=== PATIENT | male | born 1955 | race African-American/Black ===

== ENCOUNTER 2016-06-20 12:40 | Inpatient (IN) | payer OTHER ==
--- NOTE | ~2016-06-20 | CO ---
Unit #: [id number] #: [id number] Patient: JACLYN SPICER [id number] [address] [place], [place] [address] [id number] I MR#: [id number] NAME: JACLYN SPICER ROOM: [facility] Age: 61 Sex: M Admission Date: 06/20/2016 : 1955 Attending Physician: Tae Meza M.D. Primary Care Physician: Jesus Hooks M.D. CONSULTATION REPORT We were asked to see him by Dr. Meza. REASON FOR CONSULTATION Right middle lobe collapse. HISTORY OF PRESENT ILLNESS Mr. Spicer is a 61-year-old male, who actually was admitted for severe shortness of air and dyspnea. He was found to have a critical hemoglobin of 3.9 and transfused. He has a bit of a cough. No hemoptysis. Interestingly, he has been aware of an enlarged right thyroid for some time now, but was told that it was not a major issue. I cannot tell whether he was ever seen by an ENT physician. He did smoke, but he quit 20 years ago. PAST MEDICAL HISTORY Significant for diabetes mellitus; hypertension; neuropathy, status post right foot amputation. MEDICATIONS On admission had included amlodipine 5 mg p.o. daily, quinapril 20 mg p.o. daily, Tylenol with codeine q.6 hours p.r.n., Neurontin 300 mg p.o. b.i.d. ALLERGIES No known drug allergies. SOCIAL HISTORY He did smoke, but quit 20 years ago. FAMILY HISTORY Negative for lung disease. SYSTEMS REVIEW He has had a little bit of nausea. No vomiting. Appetite is good. Occasional leg swelling. He says he thinks he snores and is unaware of anybody telling him that he had any apnea. All other systems are negative except as mentioned. PHYSICAL EXAMINATION GENERAL: He presents as an old male, in no acute distress. VITAL SIGNS: Temperature was 99, pulse 70, respirations 20, blood pressure 133/67, saturation 98%. NECK: Thick. He has some asymmetric tissue towards the right consistent with this thyroid. He has no stridor. LUNGS: Evaluation of his lungs revels his breathing is not labored. Unit #: [id number] #: [id number] Patient: JACLYN SPICER Lungs are actually clear bilaterally to auscultation. HEART: Regular. ABDOMEN: Soft. Bowel sounds are present. EXTREMITIES: With 1+ edema. NEUROLOGIC: He is awake and alert. DIAGNOSTIC STUDIES IMAGING STUDIES: CT scan was reviewed by me. He has a significant soft tissue density in his neck, that is causing deviation of his trachea to the left. This is likely to be his thyroid gland. He has right middle lobe complete atelectasis. I really could not see a definite endobronchial lesion. I thought they might even have a little bit of a density that is lateral to the distal trachea that was not really mentioned by Radiology. This was done as a PE protocol and there was no pulmonary embolism. There was noted to be some lesions in the liver. These are hypodense. He does have gallstones. LABORATORY RESULTS: White blood cell count on admission 13.3, H and H were 3.9 and 14 and now 7.9 and 26, 456,000 platelets. MCV low at 61. Serum chemistry significant for BUN of 16, creatinine 1.3. Glucose is 199. Albumin 2.6, protein 6.7. PT is 11.8, PTT 27.9. He had a D-dimer of 2089. IMPRESSION 1. Complete atelectasis of right middle lobe, etiology uncertain. 2. Enlarged right thyroid with pressure on the trachea causing leftward deviation, but he has no stridor and his tracheal opening looks adequate. 3. Severe anemia. 4. Presumed hepatic metastatic disease primary uncertain. PLAN I think he needs bronchoscopy at some point. I see that a colonoscopy is planned. We could coordinate with surgery to do bronchoscopy after colonoscopy if possible. However, this would depend on when surgery wanted to do the colonoscopy and I would give deference to them. If we can coordinate, then we would need to set up the bronchoscopy in the next few days. Thank you very much for allowing me to participate in the care of this patient. Dictated by... Vicente Contreras M.D. LI/gregory TD: 06/22/2016 02:04 JOB #: [id number] Unit #: [id number] #: [id number] Patient: JACLYN SPICER CONSULTATION REPORT Page 1 of 1 X Vicente Contreras MD X CONSULTATION REPORT
--- NOTE | ~2016-06-20 | HP ---
Unit #: [id number] #: [id number] Patient: JACLYN SPICER [id number] [address] [place], [place] [address] [id number] I MR#: [id number] NAME: JACLYN SPICER [facility] Age: 61 Sex: M Admission Date: 06/20/2016 : 1955 Attending Physician: Tae Meza M.D. Primary Care Physician: Jesus Hooks M.D. HISTORY AND PHYSICAL HISTORY OF PRESENT ILLNESS The patient is a 61-year-old black male with history of hypertension, type 2 diabetes mellitus with peripheral neuropathy, obesity, personal right foot amputation, who presented himself to the emergency room with shortness of air and a nonproductive cough for the last month. It has been slowly worsening. In the emergency room, he had an essentially negative evaluation except for profound anemia and what appears to be multiple liver mets and is admitted for same. The patient is unsure of his last colonoscopy. I cannot find one in the chart. He has been transfused four units overnight and his hemoglobin is still only 6.5. I ordered stool for occult blood and they called me back and said one was positive, although I ordered three, but there is no result anywhere in the chart documenting the heme positive stool. In any case, he has already been seen by Surgery, set up for a CT scan of the abdomen and pelvis with oral and IV contrast. He is to start his GoLYTELY prep. The patient has had some right upper quadrant discomfort off and on. He is noted to have gallstones from previous x-rays. He also has had a profound weight loss of some 60 pounds over the last year but states that he started exercising about the same period of time three days weekly. PAST MEDICAL HISTORY Again, he has history of hypertension, type 2 diabetes mellitus, peripheral neuropathy, partial left foot amputation for diabetic ulcer. SOCIAL HISTORY He is a nonsmoker, nondrinker. No street drug use. FAMILY HISTORY Negative for any malignancies, anemia or GI disease. ALLERGIES He has no known drug allergies. MEDICATIONS PRIOR TO ADMISSION 1. Amlodipine 5 mg daily. 2. Quinipril 20 mg daily. 3. Tylenol 3 one q.6 hours p.r.n. for pain. 4. Neurontin 300 mg b.i.d. PHYSICAL EXAMINATION GENERAL APPEARANCE: He is awake, alert, oriented x3, in no acute distress. VITAL SIGNS: His T-max overnight was 100.0. Pulse 81. Respirations 26. Blood pressure 134/64. Room air O2 sat 99%. HEENT: Unremarkable except for pale mucous membranes. Unit #: [id number] #: [id number] Patient: DANNIELLE,JACLYN NECK: Thyromegaly without any nodules felt. Right side more enlarged than the left. No adenopathy in the cervical area. CHEST: Clear to auscultation. HEART: Regular rate and rhythm without any murmurs, rubs or gallops. ABDOMEN: Large, soft, nondistended, nontender with positive bowel sounds and no hepatosplenomegaly. EXTREMITIES: No clubbing, cyanosis or edema. He does have a partial amputation of the left lateral aspect of his left foot with his last two toes missing and the wound appears to be intact. GENITOURINARY: Deferred. RECTAL: Deferred. NEUROLOGIC: Grossly intact. DIAGNOSTI STUDIES LABORATORY: Cardiac enzymes normal x2 sets. White count 14.2, hemoglobin 3.9, 6.5 after four units, low MCV, MCH, elevated RDW, platelets 468,000. CMP normal except for sodium 134, random blood sugar 235, creatinine 1.6, GFR 52.8, AST 60, alkaline phosphatase 118, albumin 2.4. On repeat this morning, his sodium is up to 135. His BUN and creatinine are normal. GFR 67. Blood sugar is 188. Alkaline phosphatase 108. BNP was 91. PT and PTT within normal limits. Retic count 1.6%. Iron was low. B12 and folic acid were normal. The patient had a fever with his transfusion. Transfusion reaction panel was negative. CEA level is 167.4. AFT was ordered but apparently not performed or pending. Again, they told me his stool for occult blood was positive but there is no result anywhere in the chart, handwritten or in the lab. IMAGING: CT angiogram of the chest shows no PE but it was a poor quality study. There is atelectasis of the right middle lobe which is complete. There are multiple liver mets, gallstones, thyromegaly right greater than left causing tracheal deviation. CARDIOVASCULAR: EKG: Sinus rhythm with PACs. IMPRESSION 1. Iron deficiency anemia. 2. Multiple liver lesions. 3. Right middle lobe collapse. 4. Thyromegaly. 5. Hypertension. 6. Type 2 diabetes mellitus. 7. Peripheral neuropathy. 8. Gallstones. 9. Weight loss. 10. Elevated CEA level. PLAN Transfuse to keep hemoglobin above 8. EGD and colonoscopy. Follow up on full CT scan of the abdomen and pelvis with and without contrast. We will consult Pulmonary Services for what appears to be a right middle lobe collapse. SCDs for DVT prophylaxis. IV fluids. IV proton pump inhibitors. Low dose sliding scale insulin. Check A1C. IV Vasotec p.r.n. for elevated blood pressure. Further evaluation pending results of the above. Dictated by Tae Meza M.D. Unit #: [id number] #: [id number] Patient: JACLYN SPICER RICHARD/sachin TD: 06/21/2016 11:08 JOB #: [id number] HISTORY AND PHYSICAL Page 1 of 1 X Tae Meza MD X HISTORY AND PHYSICAL
--- NOTE | ~2016-06-20 | CO ---
Unit #: [id number] #: [id number] Patient: JACLYN SPICER [id number] [address] [facility]. [place], [place] [address] [id number] I MR#: [id number] NAME: JACLYN SPICER ROOM: 55 Age: 61 Sex: M Admission Date: 06/20/2016 : 1955 Attending Physician: Tae Meza M.D. Primary Care Physician: Jesus Hooks M.D. Consultation Date: 06/23/2016 CONSULTATION REPORT REASON FOR CONSULTATION Cardiac clearance for colon surgery. HISTORY OF PRESENT ILLNESS This is a 61-year-old male, who is known to Dr. Meza. We have been asked to preoperatively evaluate. The patient has been recently diagnosed with a sigmoid mass after he had EGD and colonoscopy by Dr. Albright with [facility] yesterday. The patient also has on his CT of his abdomen and pelvis along with some other scan showing some hepatic lesions and enlarged thyroid and possibly some type of mass in his lung. The patient reports to me that he has never had any cardiac issues. He had a stress test many years ago told was normal. He has hypertension. He is a diabetic. He has partial foot amputation due to poorly healing wound. He had a 2D echo in 2009 that shows ejection fraction of 60%. The patient reports of increased shortness of breath with exertion. He has had a nonproductive cough for about a month and also some occasional right upper quadrant pain. The patient does exercise and goes to the gym, but he says he has lost 60 pounds over the last year and he says some of that is unintentional. He came in with his hemoglobin down to 3.9 and received a total of 7 units of blood since admission. On interview with the patient, he denies having any chest pain, pain in his neck, bilateral jaws, shoulders, arms, or elbow. He denies any palpitations. No dizziness, presyncope, or syncope. He denies any proximal nocturnal dyspnea or orthopnea. Cardiology has been consulted to assist with evaluating the patient cleared for his planned surgery for colon resection tomorrow with Dr. Smith. PAST MEDICAL HISTORY 1. Hypertension. 2. Diabetes mellitus type 2 with peripheral neuropathy. 3. Right foot amputation due to poor healing diabetic wound. 4. Reformed smoker. He quit 20 years ago. 5. Reformed alcoholism. He quit 20 years ago. 6. In 2009, 2D echo, LVEF of 60%. No significant valvular disease. 7. Stress test about 8 years ago according to the patient was normal. 8. Morbid obesity, but he has lost 60 pounds in the last year. BMI is 48. PAST SURGICAL HISTORY Partial left foot amputation for diabetic ulcer. HOME MEDICATIONS Unit #: [id number] #: [id number] Patient: JACLYN SPICER Amlodipine 5 mg p.o. daily, quinapril 20 mg p.o. in the evening, Tylenol with codeine 1 tablet p.o. every 6 hours p.r.n., Neurontin 300 mg p.o. b.i.d. p.r.n. ALLERGIES No known drug allergies. SOCIAL HISTORY The patient works a it security engineer. He quit smoking and drinking about 20 years ago. He said he did drink fairly heavy for about 20 years and he smoked about a pack of cigarettes a day until he was about 39. No illicit drug abuse. FAMILY HISTORY No known coronary artery disease in his immediate family members. REVIEW OF SYSTEMS See details in HPI. PHYSICAL EXAMINATION GENERAL: Mr. Spicer is a 61-year-old male, in no acute respiratory distress. He is awake, alert, and oriented. VITAL SIGNS: Blood pressure currently is 147/58, heart rate 76, respirations 18, temperature 98.2, O2 sats 98% on room air. NECK: Trachea midline. No thyromegaly or lymphadenopathy. Normal carotid upstrokes. No jugular venous distention. HEART: S1, S2. Regular rate and rhythm. Slightly tachycardic on exam. No clicks, murmurs, or rubs. LUNGS: Slight diminished, otherwise clear. ABDOMEN: Obese, soft, tender in the right upper quadrant with palpating. EXTREMITIES: Pedal pulses are palpable. Trace pedal edema. DIAGNOSTIC STUDIES LABORATORY RESULTS: Glucose is 184, BUN 11, creatinine 1.2, eGFR 74.7, sodium 140, potassium 4.2, chloride 109, CO2 23, calcium is 8.7, phosphorus is 5.0, total protein 6.6, albumin 2.8, bilirubin total 1.0. AST 32, ALT 28, alkaline phosphatase is 120. CEA was 167.4. INR is 1.1. On admission, the patient's D-dimer was 2089. WBCs are 12.5, hemoglobin today is 8.1, hematocrit 26.4 on admission. The patient's hemoglobin was 3.9, hematocrit 14.7, and platelets is 369. Gram stain shows a few positive cocci in pairs and gram-positive rods. IMAGING STUDIES: Chest x-ray on admission shows borderline cardiomegaly with mild vascular congestion, mild infiltrates, or atelectasis in the right base. CT of the chest with IV contrast shows no pulmonary embolism, complete atelectasis of the right middle lobe. No pulmonary nodules or infiltrates or effusions. Multiple hypodense hepatic masses measuring up to 12.4 cm in the right hepatic lobe. Thyroid enlargement especially in the right thyroid lobe, nearly 2 cm tracheal deviation to the left. Multiple gallstones. CT of abdomen and pelvis shows multiple masses within the liver highly concerning for metastatic disease, focal thickening in the descending colon, right middle lobe atelectasis and looks to be a central obstructing mass along the right middle lobe bronchus. Chest x-ray, status post bronchoscopy does show a new density in the right base, possibly representing aspiration. Left lung is clear. CARDIOVASCULAR STUDIES: EKG Shows normal sinus rhythm with occasional premature atrial complexes, ventricular rate is 97 beats per minute, Unit #: [id number] #: [id number] Patient: JACLYN SPICER otherwise unremarkable. IMPRESSION 1. Acute anemia-iron deficiency. 2. Sigmoid mass. 3. Questionable hepatic multiple hepatic lesions. 4. Enlarged thyroid. 5. Questionable right lung mass. 6. Hypertension. 7. Diabetes mellitus type 2. 8. Morbid obesity with recent weight loss. BMI of 48. 9. Stress test years ago, told was normal. 10. Left ventricular ejection fraction is 60% on 2D echo in 2009. PLAN 1. Cardiology consult is to evaluate the patient and cleared for the surgery that is planned for tomorrow for a colon resection for his sigmoid mass. 2. On exam, the patient has no signs or symptoms of unstable angina or acute congestive heart failure. 3. The patient does have some IV Vasotec p.r.n. for elevated blood pressure. His amlodipine and quinapril has been held; however, we will start the patient on a dose of beta-carson, metoprolol 12.5 mg p.o. every 6 hours. He appeared to be a little tachycardic on exam today and we will also check his blood pressure. 4. After evaluating the patient's status and records and after examination, Dr. Whittington feels the patient would be at a [id number] acceptable risk to undergo surgery tomorrow. 5. Oncology is planned to see the patient to help with management due to sigmoid mass and liver lesions and possibly lung mass. 6. Continue monitor labs especially BUN, creatinine, electrolytes, also CBC. He will have some blood on hold for his surgery. 7. The patient is on daily Lovenox. 8. Further recommendations pending and we will follow this patient closely postoperatively. Thank you very much for allowing us to assist in care. Dictated by... Kylie Sigala A.P.R.N. for David Valladares/gregory TD: 06/24/2016 04:23 JOB #: [id number] CONSULTATION REPORT Page 1 of 1 X Kylie Sigala APRN X CONSULTATION REPORT
--- NOTE | ~2016-06-20 | DS ---
Unit #: [id number] #: [id number] Patient: JACLYN SPICER [id number] [address] [place], [place] [address] [id number] I MR#: [id number] NAME: JACLYN SPICER ROOM: 469 Age: 61 Sex: M Admission Date: 06/20/2016 : 1955 Discharge Date: 06/28/2016 Attending Physician: Tae Meza M.D. Primary Care Physician: Jesus Hooks M.D. DISCHARGE SUMMARY PRINCIPAL DISCHARGE DIAGNOSES 1. 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 2. Severe iron deficiency anemia. 3. Right middle lobe collapse secondary to metastatic disease. 4. Type 2 diabetes mellitus. 5. Hypertension. PROCEDURES 1. Transfusion of four units of packed RBCs 06/20/16. 2. Transfusion of three units of packed RBCs 06/21/16. 3. Transfusion of one unit of packed RBCs 06/22/16. 4. EGD on 06/22/16. 5. Colonoscopy with biopsies on 06/22/16. 6. Fiberoptic bronchoscopy with biopsy on 06/22/16. 7. Sigmoid resection 06/25/16. 8. Cholecystectomy 06/25/16. 9. Azam-Cut liver biopsy intraoperatively on 06/25/16. CONSULTANTS 1. [facility]. 2. Dr. Singleton. 3. Dr. Ellis. 4. Dr. Whittington. REASON FOR HOSPITALIZATION The patient is a 61-year-old black male with a history of hypertension, type 2 diabetes mellitus, obesity, neuropathy, presented himself to the emergency room with shortness of air, nonproductive cough for the last month, slowly worsening in the ER. He had essentially negative workup except for profound anemia with a CT scan showing what appeared to be multiple liver mets and CT scan of the chest showing almost complete collapse of the right middle lobe along with gallstones and thyromegaly. HOSPITAL COURSE The patient was admitted. He as immediately transfused four units of packed RBCs. He was seen in consultation by pulmonary services, Dr. Contreras and Dr. Singleton. He was seen by [facility] and underwent prep for endoscopy. On admission, his AST was 60, alkaline phos was 119. BMP was normal. Coags normal. Retic count normal. Iron was low. B12 and folic acid were normal. CEA was 167.4. He underwent an additional transfusion of two units of packed RBCs on the and an additional unit on the . Dr. Ellis was consulted for what appeared to be metastatic adenocarcinoma. He underwent EGD, colonoscopy and Unit #: [id number] #: [id number] Patient: JACLYN SPICER fiberoptic bronchoscopy on the . Fiberoptic bronchoscopy showed an obstructing lesion. EGD showed a hiatal hernia with some gastritis. Colonoscopy showed an obstructing lesion in the sigmoid colon that was biopsied and tattooed. He was then prepped for surgery, seen preoperative by cardiology and cleared. Started on IV iron. Original fiberoptic bronchoscopy showed a non-small cell CA but upon further staining it was consistent more with a GI source. He underwent surgery on the which involved a sigmoid colectomy, exploratory laparotomy, cholecystectomy and liver biopsy. Postop, he had a fairly unremarkable course. Currently, he is tolerating a regular diet. His bowels are moving. His incision looks fine. His white count is still slightly elevated at 16 but he remains afebrile. His hemoglobin is 9.5. His final path report came back this morning showing a 6.3 x 3.5 x 0.8 cm adenocarcinoma. There were 7 of 27 lymph nodes positive. Gallbladder showed chronic cholecystitis with cholelithiasis. Liver biopsy shows adenocarcinoma associated with necrosis. At this point, he is being discharged home. He is to follow up with Dr. Bar in one week for staple removal. Follow up with oncology in the next few weeks for decisions on further therapy. He is on a constant carb diet. He is to follow up with Dr. Hooks in one week with a CBC. He is currently on: 1. Tylenol 650 q.6 p.r.n. 2. Neurontin 300 mg b.i.d. 3. Norvasc 5 mg p.o. daily. 4. Accupril 20 mg p.o. daily. 5. Berkey 7.5/325 one to two p.o. q.6 hours p.r.n. for pain. 6. Ferrous gluconate 324 mg, one p.o. b.i.d. q. p.c. Dictated by... David Johnson/saumya TD: 06/29/2016 11:27 JOB #: [id number] DISCHARGE SUMMARY Page 1 of 1 X Tae Meza MD X DISCHARGE SUMMARY
--- NOTE | ~2016-06-20 | US128 ---
[id number] [facility] [address] [facility]. [place], [place] [address] [id number] I MR#: [id number] Acc #: [id number] NAME: JACLYN SPICER : 1955 SEX: M STUDY DATE/TIME: 06/24/2016 21:17 UNIT: C5B ROOM: 552 STUDY DESCRIPTION: US Thyroid Attending Physician: Tae Meza M.D. Ordering Physician: Romain Albright M.D. Primary Care Physician: Jesus Hooks M.D. MEDICAL IMAGING REPORT This report is preliminary unless electronic signature is present EXAM Ultrasound thyroid, 06/24/2016 HISTORY 61-year-old male undergoing inpatient evaluation for recently discovered descending colon mass and large hepatic metastatic lesions. Bulky right side thyroid goiter with incidentally noted on a chest CT examination. TECHNIQUE Aguirre-scale ultrasound imaging of the thyroid gland. COMPARISON CT chest, 06/20/2016. FINDINGS THYROID SIZE: Exam shows a large multinodular thyroid goiter, dominant on the right where there is significant retrotracheal and upper thoracic extension that is best demonstrated on the chest CT. Right lobe measures at least 11.2 cm x 5.2 cm x 6.1 cm. Left lobe measures at least 7.6 cm x 2.5 cm x 3.2 cm. The right thyroid lobe is completely replaced by numerous large thyroid nodules with no normal intervening thyroid parenchyma seen. There is a large solid nodule in the left inferior thyroid lobe measuring up to 3.9 cm. None of the individual thyroid nodules show overtly suspicious features that would prompt targeting for fine-needle aspiration. Given the patient's other pressing medical priorities, consider followup ultrasound examination in 1 year. IMPRESSION Very large multinodular thyroid goiter, greater on the right where there is retrotracheal and intrathoracic extension. See above. Dictated by... Ridge Salgado M.D. THIS IS AN ELECTRONICALLY VERIFIED REPORT Ridge Salgado M.D. at 06/25/2016 5:59 AM ABDIAZIZ/sahil TD: 06/25/2016 04:09 JOB #: [id number] MEDICAL IMAGING REPORT Page 1 of 1 COPY
--- NOTE | ~2016-06-20 | CR72 ---
[facility] A Service of [facility] & [facility] RADIOLOGY TEXT RESULTS PATIENT: JACLYN SPICER LOCATION: [place] [address]- : [birth year] UNIT #: [id number] AGE: [address]: Tae Meza MD SEX: M ORDER DR: [id number] [facility] [address] [facility] [address] [facility]. [place], [place] [address] [id number] I MR#: [id number] Acc #: [id number] NAME: JACLYN SPICER : 1955 SEX: M STUDY DATE/TIME: 06/22/2016 16:44 UNIT: [facility] ROOM: [facility] STUDY DESCRIPTION: CR Chest Single View Portable Attending Physician: Tae Meza M.D. Ordering Physician: Varghese Singleton M.D. Primary Care Physician: Jesus Hooks M.D. MEDICAL IMAGING REPORT This report is preliminary unless electronic signature is present EXAM Portable chest, 06/22. HISTORY Status post endoscopy with shortness of air, suspected aspiration. COMPARISON STUDIES 06/20 FINDINGS This portable view of the chest does show a new density in the right base, possibly representing aspiration. There are low lung volumes. Left lung is clear and the heart size is normal. STAT * RESULT Dictated by... Scott May M.D. THIS IS AN ELECTRONICALLY VERIFIED REPORT Scott May M.D. at 06/23/2016 6:08 AM ALVARO/lino TD: 06/22/2016 17:02 JOB #: [id number] MEDICAL IMAGING REPORT Page 1 of 1 COPY
--- NOTE | ~2016-06-20 | CT2 ---
[facility] A Service of [facility] & [facility] RADIOLOGY TEXT RESULTS PATIENT: JACLYN SPICER LOCATION: [facility] [id number] : [birth year] UNIT #: [id number] AGE: [address]: Tae Meza MD SEX: M ORDER DR: [id number] [facility] [address] [facility]. [place], [place] [address] [id number] I MR#: [id number] Acc #: [id number] NAME: JACLYN SPICER : 1955 SEX: M STUDY DATE/TIME: 06/21/2016 11:08 UNIT: [facility] ROOM: [facility] STUDY DESCRIPTION: CT Abd and Pelv W Cont Attending Physician: Tae Meza M.D. Ordering Physician: Kristian Villa M.D. Primary Care Physician: Jesus Hooks M.D. MEDICAL IMAGING REPORT This report is preliminary unless electronic signature is present EXAM CT abdomen and pelvis with contrast INDICATIONS Anemia, fever, abnormal chest CT yesterday showing liver masses. TECHNIQUE CT scan of the abdomen and pelvis was performed following administration of oral and IV contrast. Coronal and sagittal reformatted images were obtained. Comparison is made with chest CT from yesterday. This CT exam was performed with one or more of the following radiation dose reduction techniques: automatic exposure control, adjustment of mA and/or kV according to patient size, and iterative reconstruction. FINDINGS Evaluation of the lung bases redemonstrates atelectasis involving the right middle lobe and there appears to be a mass obstructing the right middle lobe bronchus. Suggest correlation with bronchoscopy. There is also an enlarged subcarinal lymph node. There are multiple large masses within the liver highly suspicious for metastatic disease. The largest mass measures about 11 cm in greatest dimension. Cholelithiasis. The spleen is unremarkable. There are bilateral renal cysts. The adrenal glands are unremarkable. The pancreas is unremarkable. There are some mildly prominent retroperitoneal lymph nodes. Pelvis: Trace free fluid. There is some focal thickening involving the descending colon best seen on coronal view image 28. Remainder of the colon is unremarkable. The bone windows are unremarkable. IMPRESSION STS. [facility] A Service of [facility] & [facility] RADIOLOGY TEXT RESULTS PATIENT: JACLYN SPICER LOCATION: [facility] [phone] : [birth year] UNIT #: [id number] AGE: [address]: Tae Meza MD SEX: M ORDER DR: 1. Multiple masses within the liver highly concerning for metastatic disease. The largest mass measures 11 cm. 2. There is focal thickening involving the descending colon. The finding is nonspecific however given the masses within the liver, a underlying colon mass cannot be excluded. Suggest correlation with colonoscopy. 3. Redemonstrated is a right middle lobe atelectasis and what appears to be a central obstructing mass involving the right middle lobe bronchus. Recommend correlation with bronchoscopy. Dictated by... Yunier Grande M.D. THIS IS AN ELECTRONICALLY VERIFIED REPORT Yunier Grande M.D. at 06/22/2016 4:34 PM KELSEY/cherelle TD: 06/21/2016 13:42 JOB #: [id number] MEDICAL IMAGING REPORT Page 1 of 1 COPY
--- NOTE | ~2016-06-20 | OR ---
Unit #: [id number] #: [id number] Patient: JACLYN SPICER [id number] [address] [place], [place] [address] [id number] I MR#: [id number] NAME: JACLYN SPICER ROOM: 469 Date of Procedure: 06/25/2016 Admission Date: 06/20/2016 Surgeon: Jesus Bar M.D. : 1955 Attending Physician: Tae Meza M.D. Primary Care Physician: Jesus Hooks M.D. OPERATIVE REPORT PREOPERATIVE DIAGNOSIS Near-obstructing colon cancer with evidence of metastatic disease. POSTOPERATIVE DIAGNOSIS Near-obstructing colon cancer with evidence of metastatic disease. PROCEDURES PERFORMED Exploratory laparotomy, sigmoid colectomy, cholecystectomy, Azam-Cut liver biopsy. NEW ACCOUNTS BANKING REPRESENTATIVE Abdelrahman. ANESTHESIA General endotracheal anesthesia. ESTIMATED BLOOD LOSS 300 mL. INDICATIONS FOR PROCEDURE A 61-year-old gentleman being evaluated for anemia and rectal bleeding, was found to have a near-obstructing colon cancer. Further evaluation revealed metastatic disease to lymph nodes, liver, and lung. DESCRIPTION OF PROCEDURE The patient was transported from his hospital room to the operating room, and after induction of general endotracheal anesthesia, Max catheter was placed. His abdominal wall hair was clipped. He was placed in a lithotomy position. He received antibiotics per SCIP protocol. A rectal prep was performed and then he was prepped and draped in the usual sterile fashion. A midline incision was made. We dissected down through the soft tissue and entered the peritoneal cavity. A Bookwalter retractor was used for retraction. The sigmoid colon was evaluated and the mass was identified. Mobilized the colon proximal and distal along the peritoneal reflection and then clamped, divided and ligated the rectosigmoid and the descending colon above and below the tumor with adequate margins grossly. JENNIFER staplers were used to divide the colon. The mesentery was sequentially clamped, divided, and ligated. Pathological nodes were noted. The proximal colon was further mobilized and then the anterior tenia was secured to the anterior wall of the rectosigmoid using 3-0 silk sutures. Colotomies were made in both the proximal and distal segments, and the full length of a 75-mm JENNIFER stapler was used to create a functional Unit #: [id number] #: [id number] Patient: JACLYN SPICER end-to-end and [id number] stapled anastomosis. The open end was then closed with an inverting 3-0 silk suture and oversewn with 3-0 silk suture. The anastomosis was widely patent. I irrigated and there was good hemostasis. We then repacked the right upper quadrant, divided the falciform ligament, and then grasped and elevated the gallbladder. Adhesions were stripped away and the infundibulum was retracted laterally. [place] of [place] was dissected out clearly identifying the cystic duct, gallbladder, and cystic duct-common duct junction. Three clips were placed distally on the cystic duct, and then a single clip was placed on the cystic duct centered to gallbladder. Cystic duct was sharply divided. Posteriorly placed cystic artery was clamped with a right-angle clamp, divided and then suture-ligated. The gallbladder was dissected out of the liver bed using cautery dissection. FloSeal was placed over the liver bed to facilitate hemostasis. There were multiple large masses in the liver consistent with metastatic disease. Azam-Cut needle was used to biopsy the most available mass to confirm that this is in fact metastatic colon cancer. Hemostasis obtained using cautery device. At this point, we irrigated the peritoneal cavity. There was good hemostasis. The bowel was placed back in the anatomic position and the fascia was closed with #1 looped PDS suture. The soft tissue was irrigated with saline followed by Betadine and then closed with sterile skin regina. Dry sterile dressing was placed. Sponges and needle counts were correct x3. The patient tolerated the procedure well and was transported to recovery in stable condition. I called his and went over the findings and postoperative expectations. Dictated by... David Reynolds/gregory TD: 06/26/2016 06:08 JOB #: [id number] OPERATIVE REPORT Page 1 of 1 X Jesus Bar MD PROCEDURE OPERATIVE NOTE
--- NOTE | ~2016-06-20 | OR ---
Unit #: [id number] #: [id number] Patient: JACLYN SPICER [id number] [address] [place], [place] [address] [id number] I MR#: [id number] NAME: JACLYN SPICER ROOM: [facility] Date of Procedure: 06/22/2016 Admission Date: 06/20/2016 Surgeon: Varghese Singleton M.D. : 1955 Attending Physician: Tae Meza M.D. Primary Care Physician: Jesus Hooks M.D. OPERATIVE REPORT PROCEDURES PERFORMED Bronchoscopy with endobronchial biopsy. ANESTHESIA Per anesthesiology. INDICATIONS FOR PROCEDURE Right middle lobe atelectasis. DESCRIPTION OF PROCEDURE After obtaining informed consent, bronchoscope was passed oropharyngeally through the vocal cords. The vocal cords were anesthetized with 2% Xylocaine. There was no movement of the right vocal cord during cough or its movement was very muted. Bronchoscope was then passed down through the vocal cords into the trachea, which was fairly tortuous. The patient had a bit of emesis at this time and we had some yellow bilious fluid. Therefore, after suctioning, bronchoscope was removed. The patient was intubated over the bronchoscope without difficulty and then bronchoscope was passed into the right upper, right middle, right lower, left upper, left middle, left lower lobes. The suctioning was done. The bronchial washing was sent for culture. There was no endobronchial lesions in any of the subsegments except for the right middle lobe. There was an erythema, edema, and neovascularizations of the airway mucosa. Several biopsies were performed of the mucosa in the right middle lobe airway. A washing was done there. The suctioning was also performed, 1:10,000 epinephrine was used in the right middle lobe. The biopsies were performed under direct visualization. There were no acute complications and no limitations. Bronchoscope was then removed. The patient was sent to recovery with an endotracheal tube hopefully to be removed afterwards. The patient tolerated the procedure well. There were no acute complications. SAMPLES Bronchial washing, bronchoalveolar lavage, and endobronchial biopsy. Thank you very much. Please page me at [phone] if you have any questions. Dictated by... Varghese Singleton M.D. /modl Unit #: [id number] #: [id number] Patient: JACLYN SPICER TD: 06/22/2016 23:37 JOB #: [id number] OPERATIVE REPORT Page 1 of 1 X iRo Singleton MD PROCEDURE OPERATIVE NOTE
--- NOTE | ~2016-06-20 | CR72 ---
[facility] A Service of [facility] & [facility] RADIOLOGY TEXT RESULTS PATIENT: JACLYN SPICER LOCATION: [facility] [id number] : [birth year] UNIT #: [id number] AGE: [address]: Tae Meza MD SEX: M ORDER DR: [id number] [facility] [address] [facility]. [place], [place] [address] [id number] I MR#: [id number] Acc #: [id number] NAME: JACLYN SPICER : 1955 SEX: M STUDY DATE/TIME: 06/25/2016 6:00 UNIT: [facility] ROOM: [facility] STUDY DESCRIPTION: CR Chest Single View Portable Attending Physician: Tae Meaz M.D. Ordering Physician: Varghese Singleton M.D. Primary Care Physician: Jesus Hooks M.D. MEDICAL IMAGING REPORT This report is preliminary unless electronic signature is present EXAM Portable chest 06/25/2016 HISTORY Short of air for 1 day. COMPARISON 06/22/2016. FINDINGS Opacity at the right base on the prior study persists and has actually become denser suggesting increasing consolidation presumably in the right middle lobe. There is no pneumothorax or other new infiltrate. Mild cardiomegaly redemonstrated. Dictated by... Ricardo Sosa M.D. THIS IS AN ELECTRONICALLY VERIFIED REPORT Ricardo Sosa M.D. at 06/25/2016 3:49 PM TEODORA/sonya TD: 06/25/2016 08:10 JOB #: [id number] MEDICAL IMAGING REPORT Page 1 of 1 COPY
--- NOTE | ~2016-06-20 | CO ---
Unit #: [id number] #: [id number] Patient: JACLYN SPICER [id number] [address] [address] [id number] I MR#: [id number] NAME: JACLYN SPICER ROOM: 55 Age: 61 Sex: M Admission Date: 06/20/2016 : 1955 Attending Physician: Tae Meza M.D. Primary Care Physician: Jesus Hooks M.D. CONSULTATION REPORT CHIEF COMPLAINT Colon cancer stage IV, metastatic disease to the liver. HISTORY OF PRESENT ILLNESS This is a 61-year-old male who came to hospital with significant declined performance status. He feels weak, short of breath, dyspnea on exertion. There is no blood in stool. No one in the family had colon cancer. Patient had CT of the abdomen and pelvis on June 21, 2016. It showed left sigmoid mass and widespread disease in the liver. One of the lesions is more than 10 cm. CBC on June 20, 2016 showed WBC 14.2, hemoglobin 3.9, MCV 52, platelets 468,000. His creatinine is 1.2. Alkaline phosphatase is 116. Transferrin saturation just 1%. CEA 165. His CT of the chest showed no PE. He is going for a left hemicolectomy in the a.m. REVIEW OF SYSTEMS CONSTITUTIONAL: Declined performance status. No fever, no chills, no sweats, no weight loss. EYES: No visual symptoms. EARS, NOSE AND THROAT: There is no runny nose or sore throat or difficulty hearing. CARDIOVASCULAR: No chest pain. No shortness of breath. No palpitations. No orthopnea. No PND. RESPIRATORY: No cough. No wheezing. No hemoptysis. GASTROINTESTINAL: No nausea, vomiting, diarrhea, constipation, hematochezia or melena. GENITOURINARY: No urinary frequency, hesitancy or urgency. No blood in the urine. MUSCULOSKELETAL: No muscle or joint pain. NEUROLOGIC: No headache. No numbness or tingling. No weakness. No seizure. PSYCHIATRIC: No anxiety, depression or mood disturbance. ENDOCRINE: No excessive urination or thirst. DERMATOLOGIC: No rash or change in the skin. ALLERGIC/IMMUNOLOGIC: No symptoms. HEMATOLOGIC/LYMPHATIC: Denies any symptoms. PAST MEDICAL HISTORY 1. Now stage IV colon cancer. 2. Diabetes. Unit #: [id number] #: [id number] Patient: JACLYN SPICER 3. Hypertension. ALLERGIES None. SOCIAL HISTORY Used to smoke one pack per day for 10 years, quit 20 years ago. Used to drink but quit many years ago. Used to work in factories. FAMILY HISTORY No one in the family has colon cancer; however, brother had diabetes. PHYSICAL EXAMINATION VITAL SIGNS: Afebrile. Pulse 66, respiratory rate 20, O2 saturation 100%, blood pressure 160/83. GENERAL: Patient is comfortable. ECOG is 0. The patient is pleasant. HEENT: Moist mucosa. Pupils equally reactive to light. Extraocular muscles intact. Sclerae anicteric. No obvious bleeding from nasal mucosa or oral mucosa. Scalp normal. Hearing normal. NECK: No JVD. No lymphadenopathy. LYMPHATIC/HEMATOLOGIC: There is no palpable adenopathy in the neck, axilla or inguinal area. CARDIOVASCULAR: S1, S2. Regular rate and rhythm. No S3 or S4. RESPIRATORY: Chest symmetrical, normal. Clear to auscultation bilaterally. No wheezes, no rales, no rhonchi. No dullness to percussion. ABDOMEN/GASTROINTESTINAL: Abdomen is soft, nontender, nondistended. No hepatosplenomegaly. EXTREMITIES: There is no clubbing, no cyanosis, no edema. No varicose veins. NEUROLOGICAL: Patient is alert, awake and oriented x3. Cranial nerves II-XII are intact. Sensory grossly intact. Motor is 4/5 in all four extremities. Gait is normal. Station is normal. Language is normal. Memory is normal. DTRs +2 in all four extremities. MUSCULOSKELETAL: No joint swelling. No bony tenderness. No muscle tenderness. SKIN: No petechiae, no rash, no ecchymosis. PSYCHIATRIC: No anxiety. No delusions or hallucinations. There is no agitation. Eye contact is normal. Affect is appropriate. There is no flight of ideas. DIAGNOSTIC STUDIES Labs and imaging studies as mentioned above. ASSESSMENT AND PLAN A 61-year-old male with the following active issues: 1. Colon cancer: Patient has stage IV disease. Patient has the widespread disease in the liver. His CEA level is elevated to 167. He is going for left hemicolectomy. As an outpatient, we will do CT PET scan. He needs palliative chemotherapy. 2. Anemia: He came with a very low hemoglobin. I will give him intravenous and folic acid. His B12 is normal. Dictated by... Crury Ellis M.D. SUE/natasha Unit #: [id number] #: [id number] Patient: JACLYN SPICER TD: 06/24/2016 08:59 JOB #: [id number] CONSULTATION REPORT Page 1 of 1 X Curry Ellis MD X CONSULTATION REPORT
--- NOTE | ~2016-06-20 | BMI ---
[facility] Nutrition Therapy DATE: 06/22/16 Patient: JACLYN SPICER Physician: LORENZO Address: [address] [place] [address] Room/Bed: [address] [place] [address], Zip: [place] [address] Admit Date: 06/20/16 Date of : [birth year] Height: 5 11 Weight: 343 156 HIGH BMI NOTE: DX: 61 yo male admitted for anemia ANTHROPOMETRICS: Ht: 5'11" Wt: 155.9 kg (343#) BMI: 47.9 DIET: NPO INTERVENTION: 1. NPO RECOMMENDATIONS: 1. Once medically feasible, advance diet to consistent carb + healthy heart to promote gradual weight loss towards healthy BMI. RD will f/u per protocol. Respectfully, Veronica Hemphill, Stations Superintendent Henrietta Vallecillo MS, RD, LD [facility] cc: client file
--- NOTE | ~2016-06-20 | CR72 ---
[facility] A Service of [facility] & [facility] RADIOLOGY TEXT RESULTS PATIENT: JACLYN SPICER LOCATION: [facility] [address] : [birth year] UNIT #: [id number] AGE: [address]: Tae Meza MD SEX: M ORDER DR: [id number] [facility] [address] [facility]. [place], [place] [address] [id number] I MR#: [id number] Acc #: [id number] NAME: JACLYN SPICER : 1955 SEX: M STUDY DATE/TIME: 06/20/2016 UNIT: [facility] ROOM: [facility] STUDY DESCRIPTION: CR Chest Single View Portable Attending Physician: Tae Meza M.D. Ordering Physician: Richie Sung M.D. Primary Care Physician: Jesus Hooks M.D. MEDICAL IMAGING REPORT This report is preliminary unless electronic signature is present EXAM Portable chest 06/20 at 12:28 INDICATIONS Cough and shortness of air for 3 days. FINDINGS AP portable chest compared with chest CT from 05/07/2009. There is mild infiltrate or atelectasis at the right base. There is central vascular congestion. There is borderline cardiomegaly. No pneumothorax. IMPRESSION Borderline cardiomegaly with mild vascular congestion. There is also some mild infiltrate or atelectasis in the right base. Dictated by... Jesus Orantes Jr., M.D. THIS IS AN ELECTRONICALLY VERIFIED REPORT Jesus Orantes Jr., M.D. at 06/23/2016 7:59 AM BEAU/jez TD: 06/20/2016 15:18 JOB #: [id number] MEDICAL IMAGING REPORT Page 1 of 1 COPY
--- NOTE | ~2016-06-20 | CT16 ---
[facility] A Service of [facility] & [facility] RADIOLOGY TEXT RESULTS PATIENT: JACLYN SPICER LOCATION: [facility] [id number] : [birth year] UNIT #: [id number] AGE: [address]: Tae Meza MD SEX: M ORDER DR: [id number] [facility] [address] [facility]. [place], [place] [address] [id number] I MR#: [id number] Acc #: [id number] NAME: JACLYN SPICER : 1955 SEX: M STUDY DATE/TIME: 06/20/2016 15:50 UNIT: [facility] ROOM: 5[address] STUDY DESCRIPTION: CT Angio Chest for PE Attending Physician: Tae Meza M.D. Ordering Physician: Richie Sung M.D. Primary Care Physician: Jesus Hooks M.D. MEDICAL IMAGING REPORT This report is preliminary unless electronic signature is present EXAM CT angiogram of the chest with IV contrast HISTORY Cough for 3 weeks. Shortness of air. TECHNIQUE IV contrast enhanced CT angiogram of the chest was performed with 3-D reconstructions. This CT exam was performed with one or more of the following radiation dose reduction techniques: automatic exposure control, adjustment of mA and/or kV according to patient size, and iterative reconstruction. FINDINGS Marked generalized thyroid enlargement involving the right thyroid lobe with extension of right thyroid lobe into the upper mediastinum causing nearly 2 cm tracheal deviation to the left. There is also mild enlargement of the partly visualized left thyroid lobe. Findings have advanced slightly compared to prior CT 05/07/2009. No pulmonary embolus is identified but sensitivity is limited by motion artifact and suboptimal IV contrast bolus density within the pulmonary arteries. No central pulmonary emboli, but the peripheral pulmonary arteries are not as well seen, particularly in the lower lobes. No pulmonary infiltrates. No effusions. Complete atelectasis of the right middle lobe. No mediastinal or hilar adenopathy. There is a mildly enlarged lymph node along the anterior margin of the right hepatic dome measuring 1 cm, new compared to the prior CT 05/07/2009. There are multiple hypodense lesions throughout the liver, measuring up to 12.4 cm in the right hepatic dome, 4.6 cm and 2.2 cm in the lateral segment left hepatic lobe, 1.9 cm in the central right hepatic lobe, and 2.9 cm in the inferior right hepatic lobe. Considerations include metastatic disease. The hepatic lesions are new STS[facility] A Service of [facility] & [facility] RADIOLOGY TEXT RESULTS PATIENT: JACLYN SPICER [facility] [id number] : [birth year] UNIT #: [id number] AGE: [address]: Tae Meza MD SEX: M ORDER DR: compared to the prior CT. There is also a 3.4 cm lesion in the medial right hepatic lobe. Multiple small gallstones. IMPRESSION 1. No pulmonary emboli identified but sensitivity is limited by motion artifact and suboptimal IV contrast bolus density within the pulmonary arteries. No central pulmonary emboli but the peripheral pulmonary arteries, particularly in the lower lobes, are not optimally evaluated and this limits sensitivity. 2. Complete atelectasis of the right middle lobe. 3. No pulmonary nodules or infiltrates or effusions. 4. Multiple hypodense hepatic masses measuring up to 12.4 cm in the right hepatic lobe. These are new lesions compared to CT 05/07/2009. Differential considerations include hepatic metastatic disease. There is a borderline to mildly enlarged lymph node along the anterior margin of the right hepatic lobe measuring 10 mm, which is also new since the prior study. 5. Thyroid enlargement, partly visualized, predominately involving the right thyroid lobe with nearly 2 cm tracheal deviation to the left with interval slight progression of these findings compared to the prior CT 05/07/2009. 6. Multiple gallstones. Dictated by... Jame Alves M.D. THIS IS AN ELECTRONICALLY VERIFIED REPORT Jame Alves M.D. at 06/20/2016 11:12 PM SHAGUFTA/jez TD: 06/20/2016 19:09 JOB #: [id number] MEDICAL IMAGING REPORT Page 1 of 1 COPY
--- NOTE | ~2016-06-20 | A ---
[facility] Therapy DATE: 06/26/16 Patient: JACLYN SPICER Physician: LORENZO Address: [address] [facility] Room/Bed: [address] [place] [address], Zip: [place] [address] Admit Date: 06/20/16 Date of : 53 Height: 5 11 Weight: 342 155.2 NUTRITIONAL ASSESSMENT: REASON: NPO/ Clear liquid diet x 6 days PMH: Colon cancer (stage IV), DM, HTN, right foot amputation, reformed smoker Anthropometrics: Ht: 5'11" Adm wt: 156 kg BMI: 48 Wt 06/26: 155.2 kg Labs: Gluc 182 Alb 2.4 Phos 5.2 Accuchecks 166 HgbA1C 6.0 Meds: MOM, novolog, zofran, KCl, IV levaquin, NaCl, protonix I/O & Bowel function: 3400/375, last BM 06/24 Skin Integrity: Bruising BUE Skin graft donor siet left thigh Edema: none noted Diet: Clear liquid Assessment: Chart reviewed, events noted. 61 yo male admitted for anemia and sigmoid mass now POD#1 colectomy with cholecystectomy and liver biopsy. Pt has been NPO or on a clear liquid diet for 6 days. JESSICA spoke with the pt and ? at bedside. Pt is ready to try solid food, reporting tolerance of clear liquids, and states that MD will advance his diet once he has a BM. Pt denies having any recent significant weight loss, besides what he may have lost since admission. RD explained the importnace of adequate nutrition/ protein intake, and educated the pt and his on a low fiber/post colectomy diet. RD also suggested Ensure Clear supplements, and the pt had one at bedside. Pt's voiced concern about Ensure Clear increasing blood sugar levels. RD explained that this will be the pt's only source of protein while he is on a clear liquid diet. Pt and his voiced understanding. RD provided printed materials, and will follow up to determine further nutritional needs. Dx: Inadequate protein-energy intake RT clinical condition, recent surgery AEB NPO or clear liquid diet x 6 days. Intervention: 1. Clear liquid diet 2. Ensure clear TID 3. Advance to a low fiber diet as tolerated [facility] DATE: 06/26/16 Patient: JACLYN SPICER Physician: LORENZO Address: [address] [place] [address] Room/Bed: [address] [place] [address], Zip: [place] [address] Admit Date: 06/20/16 Date of : 53 Height: 5 11 Weight: 342 155.2 Monitoring, Evaluation and Goals: 1. Oral intake; tolerate >50-75% meals and supplements 2. Labs; WNL: glucose, electrolytes 3. Weight; preserve lean body mass, promote gradual weight loss towards a healthy BMI once medically feasible 4. GI; promote healing and regular GI function Recommendations: 1. Continue clear liquid diet as tolerated. 2. Ensure Clear (apple) TID while the pt remains on a clear liquid diet. 3. Once medically feasible, advance the pt to a low fiber/ 75 gram CC diet as tolerated. 4. Please consult RD if the pt is unable to tolerate diet advancement. RD will continue to follow. Pt is at moderate nutritional risk. RD will follow hospital course per protocol. Respectfully, REJI PLUNKETT RD, LD [employer] [facility] [employer] cc: client file
--- NOTE | ~2016-06-20 | EKG ---
PATIENT: JACLYN SPICER UNIT #: [id number] Ventricular Rate: 81 BPM Atrial Rate: 81 BPM P-R Interval: 168 ms QRS Duration: 90 ms Q-T Interval: 398 ms QTC Calculation(Bezet): 462 ms P [place]: 36 degrees Calculated R [place]: -9 degrees Calculated T [place]: 24 degrees Diagnosis Line: Normal sinus rhythm Diagnosis Line: Normal ECG Diagnosis Line: When compared with ECG of 20-JUN-2016 12:21, Diagnosis Line: Premature atrial complexes are no longer Present Diagnosis Line: Confirmed by MORRIS RIBEIRO MD ([id number]) on Diagnosis Line: 06/26/2016 11:19:46 PM INTERPRETING MD: NATALIIA
--- NOTE | ~2016-06-20 | EKG ---
PATIENT: JACLYN SPICER UNIT #: [id number] Ventricular Rate: 97 BPM Atrial Rate: 97 BPM P-R Interval: 152 ms QRS Duration: 90 ms Q-T Interval: 352 ms QTC Calculation(Bezet): 447 ms P [place]: 38 degrees Calculated R [place]: -6 degrees Calculated T [place]: 45 degrees Diagnosis Line: Sinus rhythm with Premature atrial complexes Diagnosis Line: Otherwise normal ECG Diagnosis Line: No previous ECGs available Diagnosis Line: Confirmed by LUDY CEDENO MD ([id number]) on 06/20/2016 Diagnosis Line: 6:40:58 PM INTERPRETING MD: WILIAN QUEZADA
--- NOTE | ~2016-06-20 | OR ---
Unit #: [id number] #: [id number] Patient: JACLYN SPICER [id number] [address] [place], [place] [address] [id number] I MR#: [id number] NAME: JACLYN SPICER ROOM: [facility] Date of Procedure: 06/22/2016 Admission Date: 06/20/2016 Surgeon: Romain Albright M.D. : 1955 Attending Physician: Tae Meza M.D. Primary Care Physician: Jesus Hooks M.D. OPERATIVE REPORT JOB NOTE: CC: DR. MCCARTY. PREOPERATIVE DIAGNOSES 1. Anemia. 2. Elevated CEA level. 3. Multiple liver masses. POSTOPERATIVE DIAGNOSES 1. Anemia. 2. Elevated CEA level. 3. Multiple liver masses. PROCEDURES PERFORMED 1. Esophagogastroduodenoscopy. 2. Biopsy of antrum for Helicobacter pylori testing. 3. Attempted colonoscopy to 35 cm. 4. Biopsy of annular mass of mid sigmoid colon at 35 cm. 5. Submucosal tattoo of annular mass, sigmoid colon. ANESTHESIA Monitored anesthesia care. FINDINGS The patient was found on upper endoscopy to have a small hiatal hernia and mild gastritis. On colonoscopy, the patient was found to have an annular near obstructing neoplasm in the mid sigmoid colon at 35 cm. It was biopsied with good hemostasis and submucosally tattooed. SPECIMENS Sent to pathology. COMPLICATIONS None apparent. CONDITION The patient tolerated the procedure well. INDICATIONS FOR PROCEDURE The patient is a 61-year-old male, who presented with severe microcytic hyperchromic anemia. He was found on CT scan to have multiple liver masses. He also was found to have some atelectasis of his lungs. He presents at this time for evaluation by upper and lower endoscopy. Unit #: [id number] #: [id number] Patient: JACLYN SPICER DESCRIPTION OF PROCEDURE After obtaining informed consent, the patient was brought to the endoscopy suite and after adequate monitored anesthesia care, had the endoscope placed through the mouth into the upper esophagus under direct vision. It was advanced to the second portion of the duodenum without difficulty with the lumen always in view. The duodenum was within normal limits. The pylorus opened normally. There was some mild distal gastritis present and a biopsy was obtained for Helicobacter pylori testing. On retroflexion back to the GE junction, there was a small hiatal hernia. No other abnormalities were found in the proximal third, middle third, or incisura. On pulling back above the GE junction, there was no stenosis, stricture, or neoplasm seen. The remaining portion of the esophagus was within normal limits. Laryngeal structures were grossly normal as viewed from above. At this point in time, the colonoscope was placed through the anus and slowly advanced with the lumen always in view. At 35 cm, an annular neoplasm was seen. It was too narrow to pass the scope beyond this point. Biopsies were obtained with good hemostasis. The area was submucosally tattooed. The remaining portion of the colon distally was circumferentially visualized and no abnormalities were seen other than some mild internal hemorrhoids. The scope was removed without difficulty. The patient tolerated the procedure well. At this point in time, Dr. Singleton took over the case and proceeded with bronchoscopy, which he will dictate separately. IMPRESSION The patient will need cardiac evaluation and eventually need surgical resection. Dictated by... David Dixon/gregory TD: 06/22/2016 22:46 JOB #: [id number] CC: [facility] David Casper M.D. Arun K. Ummat, M.D. OPERATIVE REPORT Page 1 of 1 X Romain Albright MD X PROCEDURE OPERATIVE NOTE
--- NOTE | ~2016-06-20 | CR63 ---
[facility] A Service of [facility] & [facility] RADIOLOGY TEXT RESULTS PATIENT: JACLYN SPICER LOCATION: [facility] [id number] : [birth year] UNIT #: [id number] AGE: [address]: Tae Meza MD SEX: M ORDER DR: [id number] [facility] [address] [facility]. [place], [place] [address] [id number] MR#: [id number] Acc #: [id number] NAME: JACLYN SPICER : 1955 SEX: M STUDY DATE/TIME: 06/28/2016 8:01 UNIT: [facility] ROOM: [facility] STUDY DESCRIPTION: CR Chest 2 View Attending Physician: Tae Meza M.D. Ordering Physician: Kateryna Church A.P.R.N. Primary Care Physician: Jesus Hooks M.D. MEDICAL IMAGING REPORT This report is preliminary unless electronic signature is present EXAM 2-view chest, 06/28/2016 COMPARISON Single view of the chest, 06/25/2016 HISTORY Anemia, shortness of air, cough, congestion and pneumonia. Started from 06/19/2016. Status post colonic resection. FINDINGS No significant interval change. Right hemidiaphragm is raised but stable since study from 3 days ago. Minimal atelectatic changes could be present in the left lung base. No pleural effusion, pneumothorax or lung mass. Dictated by... Annette Frances M.D. THIS IS AN ELECTRONICALLY VERIFIED REPORT Annette Frances M.D. at 06/29/2016 3:19 PM CPR/salma TD: 06/28/2016 11:45 JOB #: [id number] MEDICAL IMAGING REPORT Page 1 of 1 COPY
[~2016-06-20 12:40] MED LIST: BACTRIM DS TABL1 TA2 PO; CIPRO PO; IBUPROFEN800 MG PO
[2016-06-20 12:53] LABS: POC - CKMB 1.5 ng/mL (0.0-7.9); POC - TROPONIN <0.05 ng/mL (<=0.05)
[2016-06-20 12:56] LABS: BASOPHIL% 0.2 % (0-2.5); EOSINOPHIL% 0.3 % (0.0-7.0); HEMATOCRIT 14.7 % (38.0-50.0); LYMPHOCYTE# 4.5 X10e3 (1.0-3.5); LYMPHOCYTE% 31.4 % (17.0-45.0); MEAN CORPUSCULAR HEMOGLOBIN 13.8 PG (28-34); MEAN CORPUSCULAR HGB CONC 26.6 g/dL (30-36); MEAN PLATELET VOLUME 8.6 FL (6.5-11.5); MONOCYTE% 7.1 % (3.0-12.0); NEUTROPHIL# 8.7 X10e3 (1.5-7.1); PLATELET COUNT 468 X10e3 (140-420); RED BLOOD COUNT 2.82 X10e (3.90-5.60); RED CELL DISTRIBUTION WIDTH 21.9 % (11.0-15.5); WHITE BLOOD COUNT 14.2 X10e3 (4.0-10.5)
[2016-06-20 13:00] LABS: DIFF IND YES; HEMOGLOBIN 3.9 gm/dL (13.0-16.0)
[2016-06-20 13:09] LABS: INR 1.1; PARTIAL THROMBOPLASTIN TIME 27.9 SECONDS (23.5-31.3); PROTHROMBIN TIME (PATIENT) 11.8 SECONDS (9.6-11.5)
[2016-06-20 13:20] LABS: TARGET CELLS MOD
[2016-06-20 13:21] LABS: PLATELET ESTIMATE NORMAL (NORMAL)
[2016-06-20 13:23] LABS: ALBUMIN SERUM 2.7 g/dL (3.5-5.0); BILIRUBIN, DIRECT 0.1 mg/dL (0.0-0.2); BILIRUBIN,INDIRECT 0.5 mg/dL (0.0-0.9); BILIRUBIN,TOTAL 0.6 mg/dL (0.2-2.0); BUN/CREATININE RATIO 12.5; CALCIUM SERUM 8.6 mg/dL (8.4-10.2); CREATININE SERUM 1.6 mg/dL (0.6-1.4); GLOM FILT RATE Estimated 52.8 mL/min (>60); POTASSIUM 4.4 mmol/L (3.5-5.1); PROTEIN TOTAL SERUM 6.4 g/dL (6.0-8.3)
[2016-06-20 14:18] LABS: BASOPHIL# 0.1 X10e3 (0-0.3); BASOPHIL% 0.6 % (0-2.5); EOSINOPHIL# 0.1 X10e3 (0-0.7); EOSINOPHIL% 0.5 % (0.0-7.0); HEMATOCRIT 15.2 % (38.0-50.0); LYMPHOCYTE# 0.7 X10e3 (1.0-3.5); LYMPHOCYTE% 4.8 % (17.0-45.0); MEAN CELL VOLUME 52.2 FL (83-96); MEAN CORPUSCULAR HEMOGLOBIN 13.4 PG (28-34); MEAN CORPUSCULAR HGB CONC 25.7 g/dL (30-36); MEAN PLATELET VOLUME 8.9 FL (6.5-11.5); MONOCYTE# 2.1 X10e3 (0-1.0); MONOCYTE% 15.1 % (3.0-12.0); NEUTROPHIL# 10.9 X10e3 (1.5-7.1); PLATELET COUNT 476 X10e3 (140-420); RED CELL DISTRIBUTION WIDTH 21.7 % (11.0-15.5); WHITE BLOOD COUNT 13.8 X10e3 (4.0-10.5)
[2016-06-20 14:21] LABS: HEMOGLOBIN 3.9 gm/dL (13.0-16.0)
[2016-06-20 14:24] LABS: DIFF IND NO
[2016-06-20 14:36] LABS: POC - CKMB 1.3 ng/mL (0.0-7.9); POC - TROPONIN <0.05 ng/mL (<=0.05)
[2016-06-20] MEDS ORDERED: AMLODIPINE BESYL5 MG PO (16:16)
[2016-06-20] MEDS ORDERED: QUINAPRIL HCL20 M1 PO (16:16)
[2016-06-20] MEDS ORDERED: TYLENOL #3 PO (16:17)
[2016-06-20] MEDS ORDERED: NEURONTIN300 MG PO (16:17)
[2016-06-20 18:06] LABS: TOTAL IRON BINDING CAPACITY 339 ug/dL (252-460); TRANSFERRIN 242 mg/dL (180-329)
[2016-06-20 18:07] LABS: IRON SERUM <5 ug/dL (45-182); TRANSFERRIN SATURATION 1 % (20-50)
[2016-06-20 18:12] LABS: FOLATE (FOLIC ACID) 21.8 ng/mL (>5.8)
[2016-06-21 06:09] LABS: BASOPHIL# 0.1 X10e3 (0-0.3); BASOPHIL% 0.4 % (0-2.5); EOSINOPHIL# 0.1 X10e3 (0-0.7); EOSINOPHIL% 0.5 % (0.0-7.0); HEMATOCRIT 21.9 % (38.0-50.0); LYMPHOCYTE# 0.8 X10e3 (1.0-3.5); LYMPHOCYTE% 6.1 % (17.0-45.0); MEAN CORPUSCULAR HEMOGLOBIN 18.2 PG (28-34); MEAN CORPUSCULAR HGB CONC 29.8 g/dL (30-36); MEAN PLATELET VOLUME 9.1 FL (6.5-11.5); MONOCYTE# 1.6 X10e3 (0-1.0); MONOCYTE% 11.7 % (3.0-12.0); NEUTROPHIL# 10.8 X10e3 (1.5-7.1); NEUTROPHIL% 81.3 % (40-75); PLATELET COUNT 456 X10e3 (140-420); RED BLOOD COUNT 3.58 X10e (3.90-5.60); RED CELL DISTRIBUTION WIDTH 33.1 % (11.0-15.5); WHITE BLOOD COUNT 13.3 X10e3 (4.0-10.5)
[2016-06-21 06:10] LABS: DIFF IND NO; HEMOGLOBIN 6.5 gm/dL (13.0-16.0); MEAN CELL VOLUME 61.1 FL (83-96)
[2016-06-21 07:01] LABS: ALBUMIN SERUM 2.6 g/dL (3.5-5.0); BUN/CREATININE RATIO 12.3; CALCIUM SERUM 8.6 mg/dL (8.4-10.2); CREATININE SERUM 1.3 mg/dL (0.6-1.4); GLOM FILT RATE Estimated 67.8 mL/min (>60); POTASSIUM 3.9 mmol/L (3.5-5.1); PROTEIN TOTAL SERUM 6.7 g/dL (6.0-8.3)
[2016-06-21 18:25] LABS: HEMATOCRIT 26.2 % (38.0-50.0); HEMOGLOBIN 7.9 gm/dL (13.0-16.0)
[2016-06-22 03:36] LABS: BASOPHIL% 0.3 % (0-2.5); DIFF IND NO; EOSINOPHIL# 0.1 X10e3 (0-0.7); EOSINOPHIL% 0.9 % (0.0-7.0); HEMATOCRIT 26.8 % (38.0-50.0); HEMOGLOBIN 8.2 gm/dL (13.0-16.0); MEAN CELL VOLUME 64.6 FL (83-96); MEAN CORPUSCULAR HEMOGLOBIN 19.7 PG (28-34); MEAN CORPUSCULAR HGB CONC 30.4 g/dL (30-36); MEAN PLATELET VOLUME 8.5 FL (6.5-11.5); MONOCYTE# 1.1 X10e3 (0-1.0); NEUTROPHIL# 8.5 X10e3 (1.5-7.1); NEUTROPHIL% 61.8 % (40-75); PLATELET COUNT 415 X10e3 (140-420); RED BLOOD COUNT 4.15 X10e (3.90-5.60); RED CELL DISTRIBUTION WIDTH 35.5 % (11.0-15.5); WHITE BLOOD COUNT 13.8 X10e3 (4.0-10.5)
[2016-06-22 03:54] LABS: ALBUMIN SERUM 2.8 g/dL (3.5-5.0); BUN/CREATININE RATIO 10.83; CALCIUM SERUM 8.4 mg/dL (8.4-10.2); CREATININE SERUM 1.2 mg/dL (0.6-1.4); GLOM FILT RATE Estimated 74.7 mL/min (>60); POTASSIUM 3.9 mmol/L (3.5-5.1); PROTEIN TOTAL SERUM 6.6 g/dL (6.0-8.3)
[2016-06-22 10:09] LABS: HEMATOCRIT 26.2 % (38.0-50.0); HEMOGLOBIN 7.9 gm/dL (13.0-16.0)
[2016-06-22 18:17] LABS: HEMATOCRIT 28.3 % (38.0-50.0); HEMOGLOBIN 8.5 gm/dL (13.0-16.0)
[2016-06-23 02:45] LABS: HEMATOCRIT 26.4 % (38.0-50.0); HEMOGLOBIN 8.1 gm/dL (13.0-16.0); MEAN CELL VOLUME 66.5 FL (83-96); MEAN CORPUSCULAR HEMOGLOBIN 20.4 PG (28-34); MEAN CORPUSCULAR HGB CONC 30.6 g/dL (30-36); MEAN PLATELET VOLUME 8.8 FL (6.5-11.5); RED BLOOD COUNT 3.98 X10e (3.90-5.60); RED CELL DISTRIBUTION WIDTH 36.2 % (11.0-15.5); WHITE BLOOD COUNT 12.5 X10e3 (4.0-10.5)
[2016-06-23 03:06] LABS: BUN/CREATININE RATIO 9.16; CALCIUM SERUM 8.7 mg/dL (8.4-10.2); CREATININE SERUM 1.2 mg/dL (0.6-1.4); GLOM FILT RATE Estimated 74.7 mL/min (>60); POTASSIUM 4.2 mmol/L (3.5-5.1)
[2016-06-24 05:41] LABS: HEMOGLOBIN 8.6 gm/dL (13.0-16.0); MEAN CELL VOLUME 67.6 FL (83-96); MEAN CORPUSCULAR HEMOGLOBIN 20.8 PG (28-34); MEAN CORPUSCULAR HGB CONC 30.8 g/dL (30-36); MEAN PLATELET VOLUME 8.8 FL (6.5-11.5); RED BLOOD COUNT 4.14 X10e (3.90-5.60); RED CELL DISTRIBUTION WIDTH 36.7 % (11.0-15.5); WHITE BLOOD COUNT 10.4 X10e3 (4.0-10.5)
[2016-06-24 06:54] LABS: ALBUMIN SERUM 2.3 g/dL (3.5-5.0); BILIRUBIN,TOTAL 0.8 mg/dL (0.2-2.0); BUN/CREATININE RATIO 7.5; CALCIUM SERUM 8.5 mg/dL (8.4-10.2); CREATININE SERUM 1.2 mg/dL (0.6-1.4); GLOM FILT RATE Estimated 74.7 mL/min (>60); POTASSIUM 4.2 mmol/L (3.5-5.1); PROTEIN TOTAL SERUM 5.7 g/dL (6.0-8.3)
[2016-06-25 05:22] LABS: HEMOGLOBIN 9.5 gm/dL (13.0-16.0); MEAN CELL VOLUME 67.7 FL (83-96); MEAN CORPUSCULAR HEMOGLOBIN 21.3 PG (28-34); MEAN CORPUSCULAR HGB CONC 31.5 g/dL (30-36); MEAN PLATELET VOLUME 8.8 FL (6.5-11.5); RED BLOOD COUNT 4.43 X10e (3.90-5.60); RED CELL DISTRIBUTION WIDTH 36.3 % (11.0-15.5); WHITE BLOOD COUNT 10.3 X10e3 (4.0-10.5)
[2016-06-25 06:00] LABS: ALBUMIN SERUM 2.3 g/dL (3.5-5.0); BILIRUBIN,TOTAL 0.6 mg/dL (0.2-2.0); BUN/CREATININE RATIO 5.83; CALCIUM SERUM 8.7 mg/dL (8.4-10.2); CREATININE SERUM 1.2 mg/dL (0.6-1.4); GLOM FILT RATE Estimated 74.7 mL/min (>60); MAGNESIUM 1.6 mg/dL (1.6-3.0); PHOSPHOROUS 4.1 mg/dL (2.5-4.6); POTASSIUM 4.1 mmol/L (3.5-5.1); PROTEIN TOTAL SERUM 5.7 g/dL (6.0-8.3)
[2016-06-25 14:38] LABS: HEMATOCRIT 36.5 % (38.0-50.0); HEMOGLOBIN 10.9 gm/dL (13.0-16.0)
[2016-06-26 03:50] LABS: BASOPHIL% 0.3 % (0-2.5); DIFF IND YES; EOSINOPHIL# 0.1 X10e3 (0-0.7); EOSINOPHIL% 0.3 % (0.0-7.0); HEMATOCRIT 33.3 % (38.0-50.0); HEMOGLOBIN 10.2 gm/dL (13.0-16.0); MEAN CELL VOLUME 68.8 FL (83-96); MEAN CORPUSCULAR HEMOGLOBIN 21.2 PG (28-34); MEAN CORPUSCULAR HGB CONC 30.8 g/dL (30-36); MEAN PLATELET VOLUME 8.6 FL (6.5-11.5); MONOCYTE% 5.9 % (3.0-12.0); NEUTROPHIL# 14.9 X10e3 (1.5-7.1); NEUTROPHIL% 87.5 % (40-75); PLATELET COUNT 440 X10e3 (140-420); RED BLOOD COUNT 4.84 X10e (3.90-5.60)
[2016-06-26 04:07] LABS: PLATELET ESTIMATE NORMAL (NORMAL); SMUDGE CELLS 4 /100
[2016-06-26 04:09] LABS: POLYCHROMASIA SL
[2016-06-26 04:18] LABS: ALBUMIN SERUM 2.4 g/dL (3.5-5.0); BILIRUBIN,TOTAL 0.5 mg/dL (0.2-2.0); BUN/CREATININE RATIO 8.57; CALCIUM SERUM 8.7 mg/dL (8.4-10.2); CREATININE SERUM 1.4 mg/dL (0.6-1.4); MAGNESIUM 1.7 mg/dL (1.6-3.0); PHOSPHOROUS 5.2 mg/dL (2.5-4.6); POTASSIUM 4.6 mmol/L (3.5-5.1); PROTEIN TOTAL SERUM 6.2 g/dL (6.0-8.3)
[2016-06-27 03:51] LABS: BASOPHIL# 0.1 X10e3 (0-0.3); BASOPHIL% 0.5 % (0-2.5); DIFF IND NO; EOSINOPHIL# 0.4 X10e3 (0-0.7); EOSINOPHIL% 2.5 % (0.0-7.0); HEMATOCRIT 31.6 % (38.0-50.0); HEMOGLOBIN 9.6 gm/dL (13.0-16.0); LYMPHOCYTE# 0.9 X10e3 (1.0-3.5); LYMPHOCYTE% 5.9 % (17.0-45.0); MEAN CORPUSCULAR HEMOGLOBIN 21.3 PG (28-34); MEAN CORPUSCULAR HGB CONC 30.4 g/dL (30-36); MEAN PLATELET VOLUME 8.9 FL (6.5-11.5); MONOCYTE# 1.3 X10e3 (0-1.0); MONOCYTE% 8.1 % (3.0-12.0); PLATELET COUNT 380 X10e3 (140-420); RED BLOOD COUNT 4.51 X10e (3.90-5.60); RED CELL DISTRIBUTION WIDTH 37.5 % (11.0-15.5); WHITE BLOOD COUNT 15.7 X10e3 (4.0-10.5)
[2016-06-27 04:01] LABS: ALBUMIN SERUM 2.5 g/dL (3.5-5.0); BILIRUBIN,TOTAL 0.6 mg/dL (0.2-2.0); BUN/CREATININE RATIO 9.28; CALCIUM SERUM 8.6 mg/dL (8.4-10.2); CREATININE SERUM 1.4 mg/dL (0.6-1.4); MAGNESIUM 2.2 mg/dL (1.6-3.0); POTASSIUM 4.9 mmol/L (3.5-5.1); PROTEIN TOTAL SERUM 6.5 g/dL (6.0-8.3)
[2016-06-28 04:30] LABS: BASOPHIL# 0.1 X10e3 (0-0.3); BASOPHIL% 0.5 % (0-2.5); DIFF IND NO; EOSINOPHIL# 0.4 X10e3 (0-0.7); EOSINOPHIL% 2.6 % (0.0-7.0); HEMATOCRIT 31.2 % (38.0-50.0); HEMOGLOBIN 9.5 gm/dL (13.0-16.0); LYMPHOCYTE# 0.8 X10e3 (1.0-3.5); LYMPHOCYTE% 5.3 % (17.0-45.0); MEAN CELL VOLUME 70.3 FL (83-96); MEAN CORPUSCULAR HEMOGLOBIN 21.4 PG (28-34); MEAN CORPUSCULAR HGB CONC 30.4 g/dL (30-36); MEAN PLATELET VOLUME 8.7 FL (6.5-11.5); MONOCYTE# 1.5 X10e3 (0-1.0); MONOCYTE% 9.2 % (3.0-12.0); NEUTROPHIL# 13.2 X10e3 (1.5-7.1); NEUTROPHIL% 82.4 % (40-75); PLATELET COUNT 366 X10e3 (140-420); RED BLOOD COUNT 4.44 X10e (3.90-5.60); RED CELL DISTRIBUTION WIDTH 38.7 % (11.0-15.5)
[2016-06-28 04:48] LABS: BUN/CREATININE RATIO 9.23; CALCIUM SERUM 8.3 mg/dL (8.4-10.2); CREATININE SERUM 1.3 mg/dL (0.6-1.4); GLOM FILT RATE Estimated 67.8 mL/min (>60)
[2016-06-28] MEDS ORDERED: NORCO 7.5-3251 EACH PO (13:14)
[2016-06-28] MEDS ORDERED: FERROUS GLUCON324 M1 PO ×2 (13:16→13:38)
== END 2016-06-28 15:25 | disposition home or self-care (01) | DRG 329 ==
LOC: CED 12:40 → CEDOF 16:50 → CICCU3 06-21 00:56 → C5B 06-21 15:12 → C4C 06-25 14:22
PROVIDERS: Emergency Medicine; Internal Medicine; Internal Medicine Hematology; Internal Medicine Pulmonary Disease; Registered Nurse; Specialist
PROC: 30233N1 Transfusion of Nonautologous Red Blood Cells into Peripheral Vein, Percutaneous Approach (ICD-10-PCS; 2016-06-20)
PROC: B32TYZZ Computerized Tomography (CT Scan) of Left Pulmonary Artery using Other Contrast (ICD-10-PCS; 2016-06-20)
PROC: B32SYZZ Computerized Tomography (CT Scan) of Right Pulmonary Artery using Other Contrast (ICD-10-PCS; 2016-06-20)
PROC: 0BB58ZX Excision of Right Middle Lobe Bronchus, Via Natural or Artificial Opening Endoscopic, Diagnostic (ICD-10-PCS; 2016-06-22)
PROC: 0BB88ZX Excision of Left Upper Lobe Bronchus, Via Natural or Artificial Opening Endoscopic, Diagnostic (ICD-10-PCS; 2016-06-22)
PROC: 0BB48ZX Excision of Right Upper Lobe Bronchus, Via Natural or Artificial Opening Endoscopic, Diagnostic (ICD-10-PCS; 2016-06-22)
PROC: 0BBB8ZX Excision of Left Lower Lobe Bronchus, Via Natural or Artificial Opening Endoscopic, Diagnostic (ICD-10-PCS; 2016-06-22)
PROC: 0BB68ZX Excision of Right Lower Lobe Bronchus, Via Natural or Artificial Opening Endoscopic, Diagnostic (ICD-10-PCS; 2016-06-22)
PROC: 0B958ZX Drainage of Right Middle Lobe Bronchus, Via Natural or Artificial Opening Endoscopic, Diagnostic (ICD-10-PCS; 2016-06-22)
PROC: 3E0F8GC Introduction of Other Therapeutic Substance into Respiratory Tract, Via Natural or Artificial Opening Endoscopic (ICD-10-PCS; 2016-06-22)
PROC: 0DB78ZX Excision of Stomach, Pylorus, Via Natural or Artificial Opening Endoscopic, Diagnostic (ICD-10-PCS; principal; 2016-06-23)
PROC: 0DBN8ZX Excision of Sigmoid Colon, Via Natural or Artificial Opening Endoscopic, Diagnostic (ICD-10-PCS; 2016-06-23)
PROC: 0FT40ZZ Resection of Gallbladder, Open Approach (ICD-10-PCS; 2016-06-25)
PROC: 0FB00ZX Excision of Liver, Open Approach, Diagnostic (ICD-10-PCS; 2016-06-25)
PROC: 0DBN0ZZ Excision of Sigmoid Colon, Open Approach (ICD-10-PCS; 2016-06-25 11:00)
DX: C18.7 Malignant neoplasm of sigmoid colon (principal); J18.9 Pneumonia, unspecified organism; C78.7 Secondary malignant neoplasm of liver and intrahepatic bile duct; C78.01 Secondary malignant neoplasm of right lung; Z68.42 Body mass index [BMI] 45.0-49.9, adult; C77.2 Secondary and unspecified malignant neoplasm of intra-abdominal lymph nodes; K80.10 Calculus of gallbladder with chronic cholecystitis without obstruction; J44.0 Chronic obstructive pulmonary disease with (acute) lower respiratory infection; J98.11 Atelectasis; E11.42 Type 2 diabetes mellitus with diabetic polyneuropathy; E66.01 Morbid (severe) obesity due to excess calories; I10 Essential (primary) hypertension; Z87.891 Personal history of nicotine dependence; F10.21 Alcohol dependence, in remission; K44.9 Diaphragmatic hernia without obstruction or gangrene; K29.70 Gastritis, unspecified, without bleeding; Z89.431 Acquired absence of right foot; R63.4 Abnormal weight loss; E04.2 Nontoxic multinodular goiter
CPT/HCPCS: 36415; 36430; 71010; 71020; 71275; 74177; 74230; 76536; 80048; 80053; 80076; 82378; 82553; 82607; 82746; 82947; 83036; 83540; 83550; 83735; 83880; 84100; 84484; 85014; 85018; 85025; 85027; 85044; 85379; 85610; 85730; 86850; 86880; 86900; 86901; 86923; 87070; 87077; 87102; 87116; 87205; 87206; 87252; 87254; 88108; 88304; 88305; 88307; 88309; 88341; 88342; 92611; 93005; 94010; 94640; 94760; 96374; 99285; C9113; G8996-GN; G8997-GN; G8998-GN; J0131; J0171; J0330; J1170; J1650; J1815; J1885; J1940; J1956; J2250; J2405; J2543; J2765; J2916; J3010; J3475; P9016; Q9967

== ENCOUNTER 2016-07-09 12:24 | Emergency (ER) | payer OTHER ==
[~2016-07-09 12:24] MED LIST changes: +AMLODIPINE BESYL5 MG PO; +FERROUS GLUCON324 M1 PO; +NEURONTIN300 MG PO; +NORCO 7.5-3251 EACH PO; +QUINAPRIL HCL20 M1 PO; +TYLENOL #3 PO
== END 2016-07-09 13:45 | disposition home or self-care (01) ==
LOC: CED 12:24 → CFTX 12:24
DX: L76.34 Postprocedural seroma of skin and subcutaneous tissue following other procedure (principal); E11.9 Type 2 diabetes mellitus without complications; Z79.899 Other long term (current) drug therapy
CPT/HCPCS: 99283

== ENCOUNTER → 2016-07-28 | Outpatient (CLI) | payer OTHER ==
--- NOTE | ~2016-07-28 | XA91 ---
[facility] A Service of [facility] & [facility] RADIOLOGY TEXT RESULTS PATIENT: JACLYN SPICER LOCATION: [facility] : [birth year] UNIT #: [id number] AGE: [address]: Curry Ellis MD SEX: M ORDER DR: [id number] [facility] [address] [place], [place] [address] [id number] MR#: [id number] Acc #: [id number] NAME: JACLYN SPICER : 1955 SEX: M STUDY DATE/TIME: 07/28/2016 7:52 UNIT: [facility] ROOM: STUDY DESCRIPTION: XA CVC Tunneled W Port Attending Physician: Curry Ellis M.D. Ordering Physician: Curry Ellis M.D. Primary Care Physician: Jesus Hooks M.D. MEDICAL IMAGING REPORT This report is preliminary unless electronic signature is present EXAM Port placement with ultrasound and fluoroscopic guidance. HISTORY Lung cancer. Port needed for chemotherapy. TECHNIQUE The procedure was explained to the patient including risks, benefits and complications. Informed consent was obtained and a formal time-out procedure was utilized. Full barrier sterile technique was employed via standard protocol. Conscious sedation was employed with intravenous Versed and Fentanyl that was administered by nursing who was present and monitoring the patient during the examination. Using full barrier sterile technique and following local anesthesia with 1% Xylocaine, initially the right internal jugular vein was punctured with ultrasound guidance. Ultrasound was used to confirm vessel patency which was confirmed and permanent ultrasound images were recorded. A micropuncture set was used. an 0.35 guidewire was passed through the micropuncture sheath and a peel-away sheath was placed. Attention was then directed to the right infraclavicular space. Following local anesthesia with 1% Lidocaine with epinephrine, a port pocket was created with blunt and sharp dissection. A Bard PowerPort was placed into the pocket and tunnelled from the pocket site up to the jugular vein puncture site. It was measured to 25 cm, cut and deployed with the tip positioned in the upper right atrium. The port was flushed with Heparin solution and the port pocket was irrigated with saline. It was closed with an interrupted subcutaneous layer of 3-0 Vicryl suture followed by a running 4-0 subcuticular stitch with Monocryl. Dermabond glue was applied to the port site and the jugular vein puncture site. Total fluoroscopy time 0.4 minutes with a total dose of 6 mGy. [facility] A Service of [facility] RADIOLOGY TEXT RESULTS PATIENT: JACLYN SPICER LOCATION: [facility] : 53 UNIT #: [id number] AGE: [address]: Curry Ellis MD SEX: M ORDER DR: IMPRESSION Successful placement of a port with ultrasound and fluoroscopic guidance using conscious sedation. Dictated by... Jesus De Paz M.D. THIS IS AN ELECTRONICALLY VERIFIED REPORT Jesus De Paz M.D. at 07/30/2016 4:33 PM KALEY/sahil TD: 07/28/2016 21:28 JOB #: [id number] MEDICAL IMAGING REPORT Page 1 of 1 COPY
[2016-07-28 07:15] LABS: HEMATOCRIT 33.9 % (38.0-50.0); HEMOGLOBIN 10.4 gm/dL (13.0-16.0); MEAN CELL VOLUME 73.8 FL (83-96); MEAN CORPUSCULAR HEMOGLOBIN 22.7 PG (28-34); MEAN CORPUSCULAR HGB CONC 30.8 g/dL (30-36); MEAN PLATELET VOLUME 8.9 FL (6.5-11.5); RED BLOOD COUNT 4.6 X10e (3.90-5.60); RED CELL DISTRIBUTION WIDTH 33.6 % (11.0-15.5); WHITE BLOOD COUNT 11.8 X10e3 (4.0-10.5)
[2016-07-28 07:25] LABS: PARTIAL THROMBOPLASTIN TIME 27.5 SECONDS (23.5-31.3); PROTHROMBIN TIME (PATIENT) 10.9 SECONDS (9.6-11.5)
== END | disposition home or self-care (01) ==
LOC: CIVR 06:52
PROVIDERS: Internal Medicine Hematology
DX: Z45.2 Encounter for adjustment and management of vascular access device (principal); C7A.025 Malignant carcinoid tumor of the sigmoid colon; C7B.02 Secondary carcinoid tumors of liver; C7B.09 Secondary carcinoid tumors of other sites
CPT/HCPCS: 36415; 76937; 77001; 85027; 85610; 85730; C1788; C1894; J0690; J1642; J2250; J3010